=== PATIENT | female | born 1945 | race Caucasian/White ===

== ENCOUNTER 2018-12-15 08:37 | Emergency (ER) | payer MEDICARE, BC ==
[~2018-12-15] VITALS: Ht 154.9 cm; Wt 65.0 kg
[2018-12-15] MEDS ORDERED: LISINOPRIL20 MG PO (09:05)
[2018-12-15] MEDS ORDERED: MEVACOR40 MG PO (09:05)
[2018-12-15] MEDS ORDERED: SYNTHROID112 MCG PO (09:05)
[2018-12-15] MEDS ORDERED: MULTI VIT PO (09:06)
[2018-12-15] MEDS ORDERED: CALCI17 PO (09:06)
[2018-12-15] MEDS ORDERED: ASPIRIN ADULT L81 M2 PO (09:06)
[2018-12-15] MEDS ORDERED: TORADOL PO (10:15)
[2018-12-15] MEDS ORDERED: PERCOCET 5/325M1 TAB PO (10:15)
[2018-12-15 11:19] VITALS: BP 158/76
== END 2018-12-15 11:25 | disposition home or self-care (01) ==
LOC: ED 08:37
DX: S52.502A Unspecified fracture of the lower end of left radius, initial encounter for closed fracture (principal); S52.612A Displaced fracture of left ulna styloid process, initial encounter for closed fracture; I10 Essential (primary) hypertension; E03.9 Hypothyroidism, unspecified; E78.00 Pure hypercholesterolemia, unspecified; W10.8XXA Fall (on) (from) other stairs and steps, initial encounter; Y92.833 Campsite as the place of occurrence of the external cause

== ENCOUNTER → 2019-01-03 | Outpatient (REF) | payer MEDICARE, BC ==
[~2019-01-03] MED LIST: ASPIRIN ADULT L81 M2 PO; CALCI17 PO; LISINOPRIL20 MG PO; MEVACOR40 MG PO; MULTI VIT PO; PERCOCET 5/325M1 TAB PO; SYNTHROID112 MCG PO; TORADOL PO
== END | disposition home or self-care (01) ==
LOC: DI 08:01
PROVIDERS: ATTEND Orthopaedic Surgery
DX: S52.592D Other fractures of lower end of left radius, subsequent encounter for closed fracture with routine healing (principal)